=== PATIENT | male | born 1985 | race Hispanic/Latino ===

== ENCOUNTER 2025-01-27 17:48 | Emergency (ER) | payer BC, OTHER ==
[~2025-01-27] VITALS: Ht 172.7 cm; Wt 87.5 kg
[2025-01-27 20:00] VITALS: BP 135/94; PULSE 69; RESP 16; TEMP 98.6; O2SAT 99
[2025-01-27] MEDS: HYDROcodone/APAP 5/325 1 TAB TABLET PO ONE (20:16)
--- NOTE | 2025-01-27 20:22 | NUR ---
PER ER PA, KNEE IMMOBILIZER APPLIED TO RIGHT KNEE. DISTAL PULSE AND CAPILLARY REFILL ARE NORMAL AT THIS TIME. PATIENT EDUCATED ON KNEE IMMOBILIZER USE AND VERBALIZED UNDERSTANDING.
--- NOTE | 2025-01-27 20:30 | HMCIMG ---
EXAM: CR right Knee, 3 View. CLINICAL HISTORY: right knee pain COMPARISON: None provided. FINDINGS: BONES: No acute fracture or aggressive appearing osseous lesion. JOINTS: The joint spaces show no significant degenerative disease. There is no joint effusion appreciated. SOFT TISSUES: The soft tissues are unremarkable. IMPRESSION: No acute osseous pathology evident. /[place]
[2025-01-27] MEDS ORDERED: KETO10TA2 PO (20:33)
--- NOTE | 2025-01-27 20:35 | ERN ---
General Chief Complaint: Knee Injury/Swelling Stated Complaint: RIGHT KNEE PAIN Time Seen by MD: 17:53 Time Seen by Midlevel: 17:53 Source: patient History of Present Illness Initial Comments Patient is a 39-year-old male presenting to the emergency department for evaluation of right knee pain. Patient states he was walking down a ladder when he missed a step landing with his right leg upright. He felt sharp pain to the medial aspect of his right knee. Denies any other injury. Allergies: Coded Allergies: No Known Drug Allergies (Unverified Allergy, Unknown, 01/27/25) Past Medical History Past Medical History: No Pertinent History Past Surgical History: Other Surgical History Other: TITANIUM PLATE TO FACE ROS Dictation CONSTITUTIONAL: Negative except for HPI HEAD/FACE: Negative except for HPI EENT: Negative except for HPI RESPIRATORY: Negative except for HPI GASTROINTESTINAL/ABDOMINAL: Negative except for HPI GENITOURINARY: Negative except for HPI MUSCULOSKELETAL: Negative except for HPI INTEGUMENTARY: Negative except for HPI NEUROLOGICAL/PSYCH: Negative except for HPI HEMATOLOGIC/LYMPHATIC: Negative except for HPI All Systems Negative, Except as noted above. 13 point review of systems assessed and all negative except for above. Physical Exam Physical Exam Dictation Vital Signs reviewed General Appearance: Alert, oriented x 3, no acute distress, well developed, nourished. Head and Face: non-traumatic. Eyes: PERRL, pink conjunctivas, eyelid no trauma, anterior chamber with arcus senilis. Ears: Pinnas intact and no signs of trauma or erythema ear canals clear and no discharge TM no erythema Nose: No discharge, no bleeding. Oropharynx: Mouth normal, tongue pink, pharynx clear,no erythema, tonsils no exudates, no abscesses noted, mucous membrane moist Neck: Supple, non-tender, no thyromegaly, no masses, no JVD, no bruits Breast:Deferred Chest:No tenderness, no crepitus, no paradoxical movement, no retractions Lungs:Clear, well-ventilated, symmetric, no rales, no wheezing, no rhonchi, no stridor, good breath sounds bilaterally Heart: Regular rate, regular rhythm, no murmur, no gallops Vascular: no peripheral edema, Abdomen: Soft, positive bowel sounds, nondistended, no guarding, nontender, no rebound, no masses no hepatomegaly, no splenomegaly, no Braswell's sign, no hernias. Rectal: Deferred Genital: Deferred Neurological: Normal speech, motor function intact, sensory function intact Musculoskeletal: Neck nontender, full range of motion, back nontender, full range of motion, Extremities: nontender, full range of motion Skin: Color pink, dry, no turgor, no rash, no lacerations, no abrasions, no contusions. Lymphatic: Deferred MDM MDM: Differential diagnosis: There are no social concerns with this patient. Prescription drug management Prescriptions will include: Medical management and examination interpretation discussions were had by me with other qualified healthcare professionals as indicated for the patient's care. ED Course Orders Procedure Category Date Status Time Knee 3vws Rt RAD 01/27/25 Resulted 17:58 Knee Immobilizer ISABELLA 01/27/25 In Process 19:39 Crutches ISABELLA 01/27/25 In Process 19:39 Hydrocodone/Apap PHA 01/27/25 Complete 5/325 ([place] 5/325mg) 20:00 Ketorolac PHA 01/27/25 Complete Tromethamine 30mg/Ml 20:00 Current Medications Medications (Trade) Dose Ordered Sig/Tai Route PRN Reason Start Time Stop Time Status Last Admin Dose Admin Acetaminophen/ Hydrocodone Bitart (NORco 5/325MG) 1 tab ONCE ONCE PO 01/27/25 20:00 01/27/25 20:01 DC 01/27/25 20:16 Ketorolac Tromethamine (toRADol) 30 mg ONCE ONCE IM 01/27/25 20:00 01/27/25 20:01 DC 01/27/25 20:16 Vital Signs Date Time Temp Pulse Resp B/P (MAP) Pulse Ox O2 Delivery O2 Flow Rate FiO2 01/27/25 20:00 98.6 69 16 135/94 99 Room Air* 0 21 01/27/25 17:49 98.1 85 16 139/84 98 Room Air DX & DISP Disposition: Discharge Departure Impression: Primary Impression: Right knee sprain Condition: Stable Scripts Ketorolac Tromethamine (Ketorolac Tromethamine) 10 Mg Tablet 1 TAB PO TID for pain for 5 Days, #15 TAB 0 Refills Prov: RICKY FOREMAN PAC 01/27/25 Additional Instructions: Your x-ray does not show any evidence of an acute fracture. However, you may have an internal knee injury. You will need to follow up with an [facility] for further evaluation. They may need to perform an MRI. Referrals: SELF,REFERRAL (PCP) IVETT TORREZ MD Time of Disposition: 20:32 I have reviewed the case, and I agree with, Diagnosis and Plan I performed the substantive portion of the visit. I have reviewed and personally made and approve the management plan that is documented in the note by myself or the JAVON. I acknowledge for responsibility for the patient's man agement plan. RICKY FOREMAN PAC Jan 27, 2025 20:35
== END 2025-01-27 21:03 | disposition home or self-care (01) ==
LOC: EDH 17:48
DX: S83.91XA Sprain of unspecified site of right knee, initial encounter (principal); W11.XXXA Fall on and from ladder, initial encounter; Y93.01 Activity, walking, marching and hiking; Y92.89 Other specified places as the place of occurrence of the external cause; Y99.8 Other external cause status
CPT/HCPCS: 99284; 29505; 73562; 96372; J1885